=== PATIENT | female | born 1985 | race Caucasian/White ===

== ENCOUNTER 2025-05-18 13:02 | Outpatient (AMB) | payer OTHER, SELFPAY ==
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
[2025-05-18 13:09] VITALS: BP 108/54; PULSE 59; O2SAT 97; BMI 31.7
--- OUTSIDE RECORDS SUMMARY | 2025-05-18 14:08 | XMS_ITS | Patient Health Record ---
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 Role Phone Cecelia Funez Primary Care Provider Unavailabl e Allergies Allergen (clinical drug ingredient) Drug/Non Drug Allergy documented on EMR Reaction Allergy Type Onset Date Status Tree Nuts Unknown Allergy Active Reason For Referral No Information Medications Medication SIG (Take, Route, Frequency, Duration) Notes Start Date End Date Status Mirena (52 MG) 20 MCG/DAY as directed Intrauterine Active Problems Problem Type SNOMED Code ICD Code Onset Dates Problem Status W/U Status Risk Notes Problem Exercise induced bronchospasm (777837587) Exercise induced bronchospasm (J45.990) Active confirmed Problem Obstructive sleep apnea (63923711) Obstructive sleep apnea (G47.33) Active confirmed Problem Hypersomnia (83006295) Hypersomnolence (G47.10) Active confirmed Problem Body mass index 40+ - severely obese (541459354) BMI 50.0-59.9, adult (Z68.43) Active confirmed Problem Unrefreshed by sleep (019917214) Unrefreshed by sleep (G47.8) Active confirmed Plan Of Treatment No Information Insurance Providers Payer Name Payer Address Payer Phone Subscriber Number Group Number Insured Name Patient Relationship to Insured Coverage Start Date Coverage End Date Cigna [address] [place] [phone] [id number] Kyara Marino Self - patient is the insured Medical (General) History Medical History History ICD Code Binge eating disorder Depression Hay fever Exercise induced asthma Gestational hypertension Surgical History Surgery Date(Month/Year) C section tues in her ears Hospitalization History Reason Date(Month/Year) allergic reactions to peanuts
== END 2025-05-18 13:37 | disposition home or self-care (01) ==
PROVIDERS: PCP Student in an Organized Health Care Education/Training Program; Visit Provider Student in an Organized Health Care Education/Training Program
DX: E04.2 Nontoxic multinodular goiter (principal)
CPT/HCPCS: 99204

== ENCOUNTER 2025-05-24 10:48 | Outpatient (REF) | payer OTHER, SELFPAY ==
--- NOTE | 2025-05-24 11:34 | PM.PROC ---
Brief Operative Note Date of procedure: 05/24/25 Pre-op diagnosis: right superior 1.6 cm and right inferior 2.6 cm thyroid nodule FNA biopsy Post-op diagnosis: same Procedure: THYROID FINE NEEDLE ASPIRATION PROCEDURE NOTE ? PROCEDURE PERFORMED: Ultrasound-guided FNA of thyroid nodule ? OPERATORS: Dr. Jazmine Del Rio ? INDICATION: right superior 1.6 cm and right inferior 2.6 cm thyroid nodules ; FNA performed to assess for malignancy ? DESCRIPTION OF PROCEDURE: The indications for FNA (to assess for malignancy) were reviewed with the patient in detail. Potential complications (e.g., bleeding, infection, damage to local structures, absence of clear diagnosis after FNA) were reviewed. Alternatives to FNA including conservative observation or surgery were described. The patient understood and agreed to proceed. This was documented by the signing of the written informed consent form. A time-out was performed to confirm the patient's identity and the site of planned FNA. The nodule of interest was identified using ultrasound (14 MHz linear array probe). The site of FNA was then draped in the usual fashion and carefully cleaned and prepared using alcohol swabs. The skin at the previously-identified site of needle insertion was iced and sprayed with numbing spray. First for the right superior 1.6 cm thyroid nodule, Under ultrasound guidance, _4_ passes were performed using a 1.5-inch, 25-gauge needle, and sample was obtained via capillary action. The needle tip was clearly visualized to be within the nodule at the time of sampling for _4_ of _4_ passes. Then for the right inferior 2.6 cm thyroid nodule, Under ultrasound guidance, _4_ passes were performed using a 1.5-inch, 25-gauge needle, and sample was obtained via capillary action. The needle tip was clearly visualized to be within the nodule at the time of sampling for _4_ of _4_ passes. The patient tolerated the procedure well. There were no immediate complications. A small adhesive bandage was applied, and the patient was advised to take acetaminophen (rather than NSAIDs) for any discomfort and to report any signs of inflammation/infection or marked swelling. IMPRESSION: Technically successful ultrasound-guided fine needle aspiration of right superior 1.6 cm and right inferior 2.6 cm thyroid nodules. PLAN: The patient was advised that I will provide follow-up regarding the cytology result and any subsequent plans. Jazmine Del Rio MD Endocrinology Attending Condition: stable Disposition: same day
--- OUTSIDE RECORDS SUMMARY | 2025-05-24 12:47 | XMS_ITS | Patient Health Record ---
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 Name Role Phone Cecelia Funez Primary Care [...] Status Risk Notes Problem Exercise induced bronchospasm (992257676) Exercise induced bronchospasm (J45.990) Active confirmed Problem Obstructive sleep apnea (24802436) Obstructive sleep apnea (G47.33) Active confirmed Problem Hypersomnia (19352562) Hypersomnolence (G47.10) Active confirmed Problem Body mass index 40+ - severely obese (932588295) BMI 50.0-59.9, adult (Z68.43) Active confirmed Problem Unrefreshed by sleep (042845444) Unrefreshed by sleep (G47.8) Active confirmed Plan Of Treatment No Information Insurance Providers Payer Name Payer Address Payer Phone Subscriber Number Group Number Insured Name Patient Relationship to Insured Coverage Start Date Coverage End Date Cigna [address] [place] [phone] [id number] Kyara Marino Self - patient is the insured Medical (General) History Medical History History ICD Code Binge eating disorder Depression Hay fever Exercise induced asthma Gestational hypertension Surgical History Surgery Date(Month/Year) C section tues in her ears Hospitalization History Reason Date(Month/Year) allergic reactions to peanuts
== END 2025-05-24 10:49 | disposition home or self-care (01) ==
LOC: HO.US 10:48
PROVIDERS: PCP Student in an Organized Health Care Education/Training Program; Visit Provider Student in an Organized Health Care Education/Training Program
DX: E04.2 Nontoxic multinodular goiter (principal)
CPT/HCPCS: 10005; 88173; 88305

== ENCOUNTER → 2025-05-24 10:48 | Outpatient (BNV) | payer OTHER, SELFPAY | PROVIDERS: PCP Student in an Organized Health Care Education/Training Program; Visit Provider Student in an Organized Health Care Education/Training Program | DX: E04.2 Nontoxic multinodular goiter (principal) | CPT/HCPCS: 10005; 10006 ==

== ENCOUNTER 2025-06-05 08:05 | Outpatient (AMB) | payer OTHER, SELFPAY ==
--- OUTSIDE RECORDS SUMMARY | 2025-06-05 08:11 | XMS_ITS | Patient Health Record ---
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 Name Role Phone Cecelia Funez Primary Care [...] Status Risk Notes Problem Exercise induced bronchospasm (233622641) Exercise induced bronchospasm (J45.990) Active confirmed Problem Obstructive sleep apnea (20603372) Obstructive sleep apnea (G47.33) Active confirmed Problem Hypersomnia (44160041) Hypersomnolence (G47.10) Active confirmed Problem Body mass index 40+ - severely obese (885711306) BMI 50.0-59.9, adult (Z68.43) Active confirmed Problem Unrefreshed by sleep (451105473) Unrefreshed by sleep (G47.8) Active confirmed Plan Of Treatment No Information Insurance Providers Payer Name Payer Address Payer Phone Subscriber Number Group Number Insured Name Patient Relationship to Insured Coverage Start Date Coverage End Date Cigna [address] [place] [phone] [id number] Kyara Marino Self - patient is the insured Medical (General) History Medical History History ICD Code Binge eating disorder Depression Hay fever Exercise induced asthma Gestational hypertension Surgical History Surgery Date(Month/Year) C section tues in her ears Hospitalization History Reason Date(Month/Year) allergic reactions to peanuts
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
--- OUTSIDE RECORDS SUMMARY | 2025-06-05 08:11 | XMS_ITS | Data Portability ---
Author Organization [facility], Main Office Address [address] [facility] [address] [place] [id number] Care Team Providers Care Audit Practice Intern Name Role Phone FANY BENTLEY Primary Care Provider KERRY CATALAN Bariatric Surgeon LILLY INIGUEZ Head Of Acquisitions Assessment No assessment recorded. Plan of Treatment Reminders Order Date Submit Date Provider Last Modified By Organization Details Last Modified Time Details Appointments PE EST 2024 09:30A M FANY BENTLEY MD Not available Not available Not available Lab TSH + free T4, serum 2024 025 PUMA [facility] (Centralized Electronic Ordering - All Locations), Patient Can Go To The Location Of Their Choice, 04/27/2025 10:06:08 thyrop eroxid ase Ab, serum 2024 025 PUMA [facility] (Centralized Electronic Ordering - All Locations), Patient Can Go To The Location Of Their Choice, 04/27/2025 10:06:09 CMP, serum or plasma 2024 025 [email or web address] [facility] (Centralized Electronic Ordering - All Locations), Patient Can Go To The Location Of Their Choice, 01/05/2025 09:30:29 CBC w/ auto diff 2024 025 [email or web address] [facility] (Centralized Electronic Ordering - All Locations), Patient Can Go To The Location Of Their Choice, 01/05/2025 13:20:33 urinal ysis, dipsti ck 2024 025 [email or web address] In-Office Order, Internal Use Only DO Not Attach Compendium DO Not Attach Compendium, Do Not Delete/merge, [id number] 12/23/2024 15:23:03 urinal ysis comple te, reflex cultur e 2024 025 PUMA [facility] (Centralized Electronic Ordering - All Locations), Patient Can Go To The Location Of Their Choice, 12/24/2024 08:08:23 lipid panel, serum 2023 024 [email or web address] [facility], [address], [place], [address], 09/05/2024 09:17:16 BMP, serum or plasma 2023 024 PUMA [facility], [address], [place], [address], 06/07/2024 16:48:50 CBC w/ auto diff 2023 024 [facility], [address], [place], [address], 06/07/2024 16:48:51 TSH, ultra- sensit paul, serum 2023 024 [email or web address] [facility], [address], [place], [address], 09/05/2024 09:17:16 Hepati tis C IgG Ab, qual, serum 2023 024 PUMA [facility] (Centralized Electronic Ordering - All Locations), Patient Can Go To The Location Of Their Choice, 06/07/2024 16:48:50 HIV 1 + 2, meanin gful use set 2023 024 [email or web address] [facility] (Centralized Electronic Ordering - All Locations), Patient Can Go To The Location Of Their Choice, 06/07/2024 16:48:50 Referral physic al therap ist referr al 2023 024 [email or web address] Not available 03/06/2025 10:42:22 geneti c michelle sisi referr al - pt has a family histor y of breast cancer in her mother 2023 024 [email or web address] [facility] (Genetics), [address] [place], [address], 06/21/2024 14:33:00 Procedures None record ed. Surgeries None record ed. Imaging US, thyroi d - on ct cervic al spine multin odular goiter [address] [facility] (Ultrasound), [address], [place], [address], 05/16/2025 14:51:25 CT, abdome n + pelvis , w/ contra st - Lower quadra nt abdomi nal R>L and s/p SUSAN 1 year ago with right ovary still presen t. 2024 025 [email or web address] [facility], [address], [place], [address], 01/30/2025 08:45:00 MAMMO, screen ing, digita l, bilate ral 2023 024 [email or web address] [facility], [address], [address], [place], [address], 06/22/2024 08:59:20 Medication Orders tizani dine 2 mg tablet [address] [id number], [address], [place], [phone], 12/23/2024 13:32:43 EpiPen 2-Lucas 0.3 mg/0.3 mL inject ion, auto-i njecto r [address] [facility][id number], [address], [place], [phone], 06/07/2024 15:13:31 Patient TargetsNo targets recorded. Patient Instructions Encounter Date Encounter Id Patient Instructions Last Modified By Organization Details Last Modified Time 06/07/2024 [id number] Well Visit, Ages 18 to 65: Care Instructions Not available 06/07/2024 16:48:44 tension headache: care instructions Not available 06/07/2024 16:48:44 Preventing Depression From Coming Back: Care Instructions [email or web address] Not available 06/21/2024 13:41:32 depression treatment: care instructions nbarrows Not available 06/21/2024 13:41:32 learning about depression during nbarrows Not available 06/21/2024 13:41:32 HIV testing: care instructions Not available 06/07/2024 16:48:44 09/06/2024 [id number] tension headache: care instructions Not available 09/06/2024 11:52:54 12/23/2024 [id number] painful urination (dysuria): care instructions [email or web address] Not available 12/23/2024 15:23:03 04/26/2025 [id number] thyroid nodules: care instructions Not available 04/26/2025 09:36:00 Reason for Referral Genetic Counselor Referral f or Family history of breast cancer pt has a family history of breast cancer in her mother Referring Physician: Fany Bentley [facility], Encounter Date: 06/07/2024 Physical Therapist Referral for Neck pain Referring Physician: Fany Bentley [facility], Encounter Date: 09/06/2024 Results Created Date Observation Date Name Description Value Unit Range Abnormal Flag Note LastModifiedBy Organization Detail LastModifiedTime 12/23/1912/24/2024 CBC WITH DIFFE RENTI AL/PL ATELE T WBC 7.2 x10e3 /uL 3.4-10 .8 normal Not Available [facility] ([facility]) [address], [place], [address], 12/24/2024 08:08:20 12/23/19 25 12/24/2024 CBC WITH DIFFE RENTI AL/PL ATELE T RBC 4.38 x10e6 /uL 3.77-5 .28 normal Not Available [facility] ([facility]) [address] [place], [address], 12/24/2024 08:08:20 12/23/1912/24/2024 CBC WITH DIFFE RENTI AL/PL ATELE T hemoglobin 14.1 g/dL 11.1-1 5.9 normal Not Available [facility] ([facility]) [address] [place], [address], 12/24/2024 08:08:20 12/23/1912/24/2024 CBC WITH DIFFE RENTI AL/PL ATELE T hematocrit 42.6 % 34.0-4 6.6 normal Not Available [facility] ([facility]) [address], [place], [address], 12/24/2024 08:08:20 12/23/1912/24/2024 CBC WITH DIFFE RENTI AL/PL ATELE T MCV 97 fL 79-97 normal Not Available [facility] ([facility]) [address] [place], [address], 12/24/2024 08:08:20 12/23/1912/24/2024 CBC WITH DIFFE RENTI AL/PL ATELE T MCH 32.2 pg 26.6-3 3.0 normal Not Available [facility] ([facility]) [address] [place], [address], 12/24/2024 08:08:20 12/23/1912/24/2024 CBC WITH DIFFE RENTI AL/PL ATELE T MCHC 33.1 g/dL 31.5-3 5.7 normal Not Available [facility] ([facility]) [address] [place], [address], 12/24/2024 08:08:20 12/23/1912/24/2024 CBC WITH DIFFE RENTI AL/PL ATELE T RDW 11.1 % 11.7-1 5.4 below low normal Not Available [facility] ([facility]) [address], [place], [address], 12/24/2024 08:08:20 12/23/1912/24/2024 CBC WITH DIFFE RENTI AL/PL ATELE T platelets 264 x10e3 /uL 150-45 0 normal Not Available [facility] ([facility]) [address], [place], [address], 12/24/2024 08:08:20 12/23/1912/24/2024 CBC WITH DIFFE RENTI AL/PL ATELE T neutrophils 61 % not estab. normal Not Available [facility] ([facility]) [address], [place], [address], 12/24/2024 08:08:20 12/23/1912/24/2024 CBC WITH DIFFE RENTI AL/PL ATELE T lymphs 27 % not estab. normal Not Available [facility] ([facility]) [address], [place], [address], 12/24/2024 08:08:20 12/23/1912/24/2024 CBC WITH DIFFE RENTI AL/PL ATELE T monocytes 6 % not estab. normal Not Available [facility] ([facility]) [address], [place], [address], 12/24/2024 08:08:20 12/23/1912/24/2024 CBC WITH DIFFE RENTI AL/PL ATELE T eos 5 % not estab. normal Not Available [facility] ([facility]) [address] [place], [address], 12/24/2024 08:08:20 12/23/19 25 12/24/2024 CBC WITH DIFFE RENTI AL/PL ATELE T basos 1 % not estab. normal Not Available [facility] ([facility]) [address], [place], [address], 12/24/2024 08:08:20 12/23/1912/24/2024 CBC WITH DIFFE RENTI AL/PL ATELE T immature cells PIZZA BAKER Not Available [facility] ([facility]) [address], [place], [address], 12/24/2024 08:08:20 12/23/1912/24/2024 CBC WITH DIFFE RENTI AL/PL ATELE T neutrophils (absolute) 4.5 x10e3 /uL 1.4-7. 0 normal Not Available [facility] ([facility]) [address] [place], [address], 12/24/2024 08:08:20 12/23/19 25 12/24/2024 CBC WITH DIFFE RENTI AL/PL ATELE T lymphs (absolute) 1.9 x10e3 /uL 0.7-3. 1 normal Not Available [facility] ([facility]) [address] [place], [address], 12/24/2024 08:08:20 12/23/1912/24/2024 CBC WITH DIFFE RENTI AL/PL ATELE T monocytes(ab solute) 0.4 x10e3 /uL 0.1-0. 9 normal Not Available [facility] ([facility]) [address] [place], [address], 12/24/2024 08:08:20 12/23/1912/24/2024 CBC WITH DIFFE RENTI AL/PL ATELE T eos (absolute) 0.3 x10e3 /uL 0.0-0. 4 normal Not Available [facility] ([facility]) [address] [place], [address], 12/24/2024 08:08:20 12/23/19 25 12/24/2024 CBC WITH DIFFE RENTI AL/PL ATELE T baso (absolute) 0.0 x10e3 /uL 0.0-0. 2 normal Not Available [facility] ([facility]) [address] [place], [address], 12/24/2024 08:08:20 12/23/19 25 12/24/2024 CBC WITH DIFFE RENTI AL/PL ATELE T immature granulocytes 0 % not estab. Not Available [facility] ([facility]) [address], [place], [address], 12/24/2024 08:08:20 12/23/19 25 12/24/2024 CBC WITH DIFFE RENTI AL/PL ATELE T immature grans (abs) 0.0 x10e3 /uL 0.0-0. 1 Not Available [facility] ([facility]) [address], [place], [address], 12/24/2024 08:08:20 12/23/19 25 12/24/2024 CBC WITH DIFFE RENTI AL/PL ATELE T NRBC PIZZA BAKER Not Available [facility] ([facility]) [address], [place], [address], 12/24/2024 08:08:20 12/23/19 25 12/24/2024 CBC WITH DIFFE RENTI AL/PL ATELE T hematology comments: PIZZA BAKER Not Available [facility] ([facility]) [address] [place], [address], 12/24/2024 08:08:20 12/23/1912/24/2024 COMP. METAB OLIC PANEL (14) glucose 81 mg/dL 70-99 normal Not Available [facility] ([facility]) [address] [place], [address], 12/24/2024 08:08:21 12/23/19 25 12/24/2024 COMP. METAB OLIC PANEL (14) BUN 13 mg/dL 6-20 normal Not Available [facility] ([facility]) [address] [place], [address], 12/24/2024 08:08:21 12/23/19 25 12/24/2024 COMP. METAB OLIC PANEL (14) creatinine 0.74 mg/dL 0.57-1 .00 normal Not Available [facility] ([facility]) [address] [place], [address], 12/24/2024 08:08:21 12/23/19 25 12/24/2024 COMP. METAB OLIC PANEL (14) eGFR 107 mL/mi n/1.7 3 >59 normal Not Available [facility] ([facility]) [address] [place], [address], 12/24/2024 08:08:21 12/23/19 25 12/24/2024 COMP. METAB OLIC PANEL (14) BUN/creatini ne ratio 18 9-23 normal Not Available [facility] ([facility]) [address] [place], [address], 12/24/2024 08:08:21 12/23/19 25 12/24/2024 COMP. METAB OLIC PANEL (14) sodium 141 mmol/ L 134-14 4 normal Not Available [facility] ([facility]) [address] [place], [address], 12/24/2024 08:08:21 12/23/1912/24/2024 COMP. METAB OLIC PANEL (14) potassium 4.1 mmol/ L 3.5-5. 2 normal Not Available [facility] ([facility]) [address] [place], [address], 12/24/2024 08:08:21 12/23/19 25 12/24/2024 COMP. METAB OLIC PANEL (14) chloride 103 mmol/ L 96-106 normal Not Available [facility] ([facility]) [address] [place], [address], 12/24/2024 08:08:21 12/23/1912/24/2024 COMP. METAB OLIC PANEL (14) carbon dioxide, total 22 mmol/ L 20-29 normal Not Available [facility] ([facility]) [address] [place], [address], 12/24/2024 08:08:21 12/23/1912/24/2024 COMP. METAB OLIC PANEL (14) calcium 9.4 mg/dL 8.7-10 .2 normal Not Available [facility] ([facility]) [address] [place], [address], 12/24/2024 08:08:21 12/23/1912/24/2024 COMP. METAB OLIC PANEL (14) protein, total 6.6 g/dL 6.0-8. 5 normal Not Available [facility] ([facility]) [address] [place], [address], 12/24/2024 08:08:21 12/23/1912/24/2024 COMP. METAB OLIC PANEL (14) albumin 4.5 g/dL 3.9-4. 9 normal Not Available [facility] ([facility]) [address] [place], [address], 12/24/2024 08:08:21 12/23/1912/24/2024 COMP. METAB OLIC PANEL (14) globulin, total 2.1 g/dL 1.5-4. 5 Not Available [facility] ([facility]) [address] [place], [address], 12/24/2024 08:08:21 12/23/1912/24/2024 COMP. METAB OLIC PANEL (14) bilirubin, total 0.5 mg/dL 0.0-1. 2 normal Not Available [facility] ([facility]) [address] [place], [address], 12/24/2024 08:08:21 12/23/1912/24/2024 COMP. METAB OLIC PANEL (14) alkaline phosphatase 67 IU/L 44-121 normal Not Available [facility] ([facility]) [address], [place], [address], 12/24/2024 08:08:21 12/23/1912/24/2024 COMP. METAB OLIC PANEL (14) AST (SGOT) 21 IU/L 0-40 normal Not Available [facility] ([facility]) [address], [place], [address], 12/24/2024 08:08:21 12/23/1912/24/2024 COMP. METAB OLIC PANEL (14) ALT (SGPT) 18 IU/L 0-32 normal Not Available [facility] ([facility]) [address], [place], [address], 12/24/2024 08:08:21 12/23/1912/24/2024 UA/M W/RFL X CULTU RE, ROUTI NE specific gravity 1.009 1.005- 1.030 normal Not Available [facility] ([facility]) [address] [facility], [place], [address], 12/24/2024 08:08:23 12/23/1912/24/2024 UA/M W/RFL X CULTU RE ROUTI NE pH 5.5 5.0-7. 5 normal Not Available [facility] ([facility]) [address] [place], [address], 12/24/2024 08:08:23 12/23/1912/24/2024 UA/M W/RFL X CULTU RE ROUTI NE urine-color Yellow yellow Not Available [facility] ([facility]) [address], [place], [address], 12/24/2024 08:08:23 01/24/20 25 12/24/2024 UA/M W/RFL X CULTU RE, ROUTI NE appearance Clear clear Not Available [facility] ([facility]) [address] [place], [address], 12/24/2024 08:08:23 12/23/1912/24/2024 UA/M W/RFL X CULTU RE, ROUTI NE WBC esterase Negati ve negati ve Not Available [facility] ([facility]) [address] [facility], [place], [address], 12/24/2024 08:08:23 12/23/1912/24/2024 UA/M W/RFL X CULTU RE, ROUTI NE protein Negati ve negati ve/tra ce Not Available [facility] ([facility]) [address], [place], [address], 12/24/2024 08:08:23 12/23/1912/24/2024 UA/M W/RFL X CULTU RE, ROUTI NE glucose Negati ve negati ve Not Available [facility] ([facility]) [address] [place], [address], 12/24/2024 08:08:23 12/23/1912/24/2024 UA/M W/RFL X CULTU RE, ROUTI NE ketones Negati ve negati ve Not Available [facility] ([facility]) [address] [place], [address], 12/24/2024 08:08:23 12/23/1912/24/2024 UA/M W/RFL X CULTU RE, ROUTI NE occult blood Negati ve negati ve Not Available [facility] ([facility]) [address] [place], [address], 12/24/2024 08:08:23 12/23/19 25 12/24/2024 UA/M W/RFL X CULTU RE, ROUTI NE bilirubin Negati ve negati ve Not Available [facility] ([facility]) [address], [place], [address], 12/24/2024 08:08:23 12/23/1912/24/2024 UA/M W/RFL X CULTU RE, ROUTI NE urobilinogen ,semi-qn 0.2 mg/dL 0.2-1. 0 normal Not Available [facility] ([facility]) [address] [facility], [place], [address], 12/24/2024 08:08:23 12/23/1912/24/2024 UA/M W/RFL X CULTU RE, ROUTI NE nitrite, urine Negati ve negati ve Not Available [facility] ([facility]) [address] [facility], [place], [address], 12/24/2024 08:08:23 12/23/1912/24/2024 UA/M W/RFL X CULTU RE, ROUTI NE microscopic examination Commen t Micro scopi c follo ws if indic ated. Not Available [facility] ([facility]) [address], [place], [address], 12/24/2024 08:08:23 12/23/1912/24/2024 UA/M W/RFL X CULTU RE, ROUTI NE microscopic examination See below: Micro scopi c was indic ated and was perfo rmed. Not Available [facility] ([facility]) [address], [place], [address], 12/24/2024 08:08:23 12/23/1912/24/2024 UA/M W/RFL X CULTU RE, ROUTI NE WBC None seen /hpf 0 - 5 Not Available [facility] ([facility]) [address] [facility], [place], [address], 12/24/2024 08:08:23 12/23/1912/24/2024 UA/M W/RFL X CULTU RE, ROUTI NE RBC None seen /hpf 0 - 2 Not Available [facility] ([facility]) [address] [facility], [place], [address], 12/24/2024 08:08:23 12/23/19 25 12/24/2024 UA/M W/RFL X CULTU RE, ROUTI NE epithelial cells (non renal) None seen /hpf 0 - 10 Not Available [facility] ([facility]) [address] [facility], [place], [address], 12/24/2024 08:08:23 12/23/1912/24/2024 UA/M W/RFL X CULTU RE, ROUTI NE epithelial cells (renal) PIZZA BAKER Not Available [facility] ([facility]) [address] [facility], [place], [address], 12/24/2024 08:08:23 12/23/1912/24/2024 UA/M W/RFL X CULTU RE, ROUTI NE casts None seen /lpf none seen Not Available [facility] ([facility]) [address] [facility], [place], [address], 12/24/2024 08:08:23 12/23/1912/24/2024 UA/M W/RFL X CULTU RE, ROUTI NE cast type PIZZA BAKER Not Available [facility] ([facility]) [address] [facility], [place], [address], 12/24/2024 08:08:23 12/23/1912/24/2024 UA/M W/RFL X CULTU RE, ROUTI NE crystals PIZZA BAKER Not Available [facility] ([facility]) [address] [facility], [place], [address], 12/24/2024 08:08:23 12/23/1912/24/2024 UA/M W/RFL X CULTU RE, ROUTI NE crystal type PIZZA BAKER Not Available [facility] ([facility]) [address] [facility], [place], [address], 12/24/2024 08:08:23 12/23/1912/24/2024 UA/M W/RFL X CULTU RE, ROUTI NE mucus threads PIZZA BAKER Not Available [facility] ([facility]) [address] [facility], [place], [address], 12/24/2024 08:08:23 12/23/1912/24/2024 UA/M W/RFL X CULTU RE, ROUTI NE bacteria None seen none seen/f ew Not Available [facility] ([facility]) [address] [facility], [place], [address], 12/24/2024 08:08:23 12/23/1912/24/2024 UA/M W/RFL X CULTU RE, ROUTI NE yeast PIZZA BAKER Not Available [facility] ([facility]) [address] [facility], [place], [address], 12/24/2024 08:08:23 12/23/1912/24/2024 UA/M W/RFL X CULTU RE, ROUTI NE trichomonas PIZZA BAKER Not Available [facility] ([facility]) [address] [facility], [place], [address], 12/24/2024 08:08:23 12/23/1912/24/2024 UA/M W/RFL X CULTU RE, ROUTI NE comment PIZZA BAKER Not Available [facility] ([facility]) [address] [facility], [place], [address], 12/24/2024 08:08:23 12/23/1912/24/2024 UA/M W/RFL X CULTU RE, ROUTI NE urinalysis reflex Commen t This speci men will not refle x to a Urine Cultu re. Not Available [facility] ([facility]) [address] [facility], [place], [address], 12/24/2024 08:08:23 12/23/19 25 12/23/2024 urina lysis , dipst ick Leukocytes Negati ve Not Available In-Office Order Internal Use Only DO Not Attach Compendium DO Not Attach Compendium, Do Not Delete/merge, [facility] 12/23/2024 13:48:02 12/23/19 25 12/23/2024 urina lysis , dipst ick Nitritie negati ve Not Available In-Office Order Internal Use Only DO Not Attach Compendium DO Not Attach Compendium, Do Not Delete/merge, [facility] 12/23/2024 13:48:02 12/23/19 25 12/23/2024 urina lysis , dipst ick Urobilinogen .2 Not Available In-Of fice Order Internal Use Only DO Not Attach Compendium DO Not Attach Compendium, Do Not Delete/merge, [facility] 12/23/2024 13:48:02 12/23/19 25 12/23/2024 urina lysis , dipst ick Protein Negati ve Not Available In-Office Order Internal Use Only DO Not Attach Compendium DO Not Attach Compendium, Do Not Delete/merge, [facility] 12/23/2024 13:48:02 12/23/19 25 12/23/2024 urina lysis , dipst ick pH 6.0 Not Available In-Office Order Internal Use Only DO Not Attach Compendium DO Not Attach Compendium, Do Not Delete/merge, [facility] 12/23/2024 13:48:02 12/23/19 25 12/23/2024 urina lysis , dipst ick Blood Negati ve Not Available In-Office Order Internal Use Only DO Not Attach Compendium DO Not Attach Compendium, Do Not Delete/merge, [facility] 12/23/2024 13:48:02 12/23/19 25 12/23/2024 urina lysis , dipst ick Specific [place] 1.010 Not Available In-Off ice Order Internal Use Only DO Not Attach Compendium DO Not Attach Compendium, Do Not Delete/merge, [facility] 12/23/2024 13:48:02 12/23/19 25 12/23/2024 urina lysis , dipst ick Ketone Negati ve Not Available In-Office Order Internal Use Only DO Not Attach Compendium DO Not Attach Compendium, Do Not Delete/merge, [facility] 12/23/2024 13:48:02 12/23/1912/23/2024 urina lysis , dipst ick Bilirubin Negati ve Not Available In-Office Order Internal Use Only DO Not Attach Compendium DO Not Attach Compendium, Do Not Delete/merge, [facility] 12/23/2024 13:48:02 12/23/1912/23/2024 urina lysis , dipst ick Glucose Negati ve Not Available In-Office Order Internal Use Only DO Not Attach Compendium DO Not Attach Compendium, Do Not Delete/merge, [id number] 12/23/2024 13:48:02 12/23/1912/23/2024 urina lysis , dipst ick Appearance Clear Not Available In-Offi ce Order Internal Use Only DO Not Attach Compendium DO Not Attach Compendium, Do Not Delete/merge, [facility] 12/23/2024 13:48:02 12/23/1912/23/2024 urina lysis , dipst ick Color Yellow Not Available In-Office Order Internal Use Only DO Not Attach Compendium DO Not Attach Compendium, Do Not Delete/merge, [facility] 12/23/2024 13:48:02 04/26/2004/27/2025 TSH+F REE T4 TSH 0.720 uIU/m L 0.450- 4.500 normal Not Available [facility] ([facility]) [address] [place], [address], 04/27/2025 10:06:08 04/26/2004/27/2025 TSH+F REE T4 T4,free(dire ct) 1.14 NG/dL 0.82-1 .77 normal Not Available [facility] ([facility]) [address] [facility], [place], [address], 04/27/2025 10:06:08 04/26/20 25 04/27/2025 THYRO ID ANTIB ODIES thyroid peroxidase (tpo) Ab <9 IU/mL 0-34 Not Available [facility] ([facility]) [address] [facility], [place], [address], 04/27/2025 10:06:09 04/26/20 25 04/27/2025 THYRO ID ANTIB ODIES thyroglobuli n antibody <1.0 IU/mL 0.0-0. 9 Thyro globu luisa Antib kellee measu red by Anya daley Coult er Metho dolog y It shoul d be noted that the prese nce of thyro globu luisa antib odies may not be patho genic nor diagn ostic , espec ially at very low level s. The assay manuf actur er has found that four perce nt of indiv idual s witho ut evide nce of thyro id disea se or autoi mmuni ty will have posit paul TgAb level s up to 4 IU/mL . Not Available [facility] ([facility]) [address], [place], [address], 04/27/2025 10:06:09 04/03/20 25 03/17/2025 CT, cervi vj spine , w/o contr ast No observ ation record ed. [facility] [address] [place], [address], 04/03/2025 11:49:58 05/09/20 25 05/09/2025 US head neck soft tissu e See Note [facility] , a member of [facility] t Name: DAVID Sutherland Date of : 1984 Reason for Exam: thyroi d nodule Exam Date: 2024 [id number] EST Report Status : Final Orderi ng Provid er: NORMA GRECO PCP: NORMA GRECO HISTOR Y: Thyroi d nodule . TECHNI QUE: Graysc olivia assess ment of the thyroi d was perfor med with a high freque ncy linear transd ucer. COMPAR WENCESLAO: None FINDIN GS: The right lobe of the thyroi d measur es: 5.1 x 1.9 x 2.5 cm Previo us measur ement: No previo us availa ble Right lobe contou r: The right lobe contou r is smooth . Right lobe echoge nicity : Homoge neous Right lobe vascul arity: Normal The left lobe of the thyroi d measur es: 5.2 x 1.0 x 1.6 cm Previo us measur ement: No previo us availa ble Left lobe contou r: The left lobe contou r is smooth . Left lobe echoge nicity : Homoge neous Left lobe vascul arity: Normal Isthmu s measur es (AP): 0.4 cm Previo us measur ement: No previo us availa ble Isthmu s contou r: The isthmi c contou r is smooth . Isthmu s echoge nicity : Homoge neous Isthmu s vascul arity: Normal Masses : There are multip le bilate ral nodule s RIGHT LOBE: Upper pole Sharpl y circum scribe d homoge neous hypoec hoic oval mass with long axis parall el. Mild silversmith apprentice ior enhanc ement. No suspic ious calcif icatio n. No suspic ious color signal . No eviden ce of extrat hyroid al extens ion 6//2 5-0.8 x 0.4 x 0.9 cm TR 4 Mid right lobe There is a hetero geneou s solid nodule with isoech oic, hypere choic and hypoec hoic compon ents. Mixed silversmith apprentice ior featur es. No suspic ious calcif icatio ns. The margin s are circum scribe d. No eviden ce of extrat hyroid al extens ion. There is some internal controls analyst al color signal . 6/10/2 5-1.6 x 1.5 x 1.5 cm TR 4 Recomm end tissue diagno sis Lower pole There is a circum scribe d hetero geneou s solid oval nodule replac ing much of the lower pole. There are a few small cystic compon ents. There are some internal controls analyst al bright reflec tors. There is no eviden ce of extrat hyroid al extens ion. There is some color signal 6/10/2 5-2.6 x 1.6 x 1.8 cm TR 4 Tissue diagno sis recomm ended. LEFT LOBE: Upper pole Circum scribe d solid oval nodule with long axis parall el. No suspic ious color signal . Mild silversmith apprentice ior enhanc ement. No eviden ce of extrat hyroid al extens ion or suspic ious calcif icatio n 5-0.7 x 0.4 x 1.1 cm TR 4 There is a benign 0.5 cm colloi d cyst in the mid left lobe OTHER: Extrat hyroid al extens ion: None Region al lymph nodes: No enlarg ed lymph nodes demons trated IMPRES STU: There are multip le bilate ral thyroi d nodule s. There are 2 mostly solid nodule s in the right lobe. These each measur e greate r than 1.5 cm. Recomm end tissue diagno sis. This could be accomp lished using ultras ound locali zation and guidan ce. TI-RAD S Assess ment (updat ed February 2017) Compos ition: cystic or spongi form: 0 pt mixed cystic and solid: 1 pt solid or almost comple tely solid: 2 pts Echoge nicity : anecho ic: 0 pt hypere choic or isoech oic: 1 pt hypoec hoic: 2 pts very hypoec hoic: 3 pt Shape: wider than tall: 0 pt taller than wide: 3 pts Margin : smooth : 0 pt ill-de fined: 0 pt lobula earnestine/ir regula r: 2 pts extra- thyroi lukasz extens ion: 3 pts Echoge yulia foci none or large comet tail artifa ct: 0 pt macro- calcif icatio n: 1 pt periph eral/r im ca++: 2 pts puncta te echoge yulia foci: 3 pts TR1: 0 pts; benign ; no follow -up TR2: 2 pts; not suspic ious; no FNA TR3: 3 pts; mildly suspic ious; < or = 1.5 cm f/u; > or = 2.5 cm FNA TR4: 4-6 pts; modera tely suspic ious; < or = 1.0 cm follow -up; 1.5 cm FNA TR5: 7 or > pts; highly suspic ious; .5-.9 cm f/u; 1.0 cm or > FNA ------ -- FINAL REPORT ------ -- Dictat ed By: Coughl in, Joe F Dictat ed Date: 2024 14:28 ET Assign ed Physic elvi: Joe House Review ed and Electr onical ly Signed By: Joe House Signed Date: 2024 14:42 ET Workst ation ID: [id number] Transc ribed By: Self Edit Transc ribed Date: 2024 14:29 ET [facility] [address], [place], [address], 05/10/2025 11:09:15 Result Notes None recorded. Problems Name Problem SNOMED Code Status Onset Date Resolution Date Notes Provider Name and Address Organization Details Recorded Time Abnormal uterine bleeding 31071464430 100 Completed 202306/07/2024 FANY BENTLEY MD [address] [address], [address], [facility] 4 07:18:52 Dizzines s 520775471 Completed 202306/07/2024 orthosta tic FANY BENTLEY MD [address] [facility] [address], [address], [facility] 4 14:33:23 Carpal tunnel syndrome 28460377 Completed 202306/07/2024 FANY BENTLEY MD [address] [address], [address], [facility] 4 07:04:29 Tension- type headache 741756366 Active 2023 FANY BENTLEY MD [address] [facility] [address], [address], [facility] 4 07:07:09 Binge eating disorder 055174674 Completed 202306/07/2024 FANY BENTLEY MD [address] [facility] [address], [address], [facility] 4 07:07:23 Lateral epicondy litis of bilatera l humerus 05636291022 171533 Completed 202306/07/2024 FANY BENTLEY MD [address] [address], [place], [address], [facility] 4 07:07:43 Generali zed anxiety disorder 98791838 Active 2023 FANY BENTLEY MD [address], [address], [facility] 4 14:30:23 Major depressi ve disorder 132565429 Active 2023 FANY BENTLEY MD [address], [address], [facility] 4 16:46:44 Mild major depressi on, single episode 74095873 Active 2023 Hamida wallace, [facility] 4 13:39:42 Problem Notes None recorded. Procedures Surgical History Date Name Laterality Status Provider Name and Address Organization Details Recorded Time 024 total abdominal hysterectomy completed Aylin carnes MA [facility] 12/23/2024 14:51:42 023 laparoscopic sleeve gastrectomy completed FANY BENTLEY MD [address], [address], [facility] 06/07/2024 07:13:50 section completed FANY BENTLEY MD [address], [address], [facility] 06/07/2024 07:04:46 cystourethroscopy and dilation of urinary bladder completed FANY BENTLEY MD [address], [address], [facility] 06/07/2024 07:17:25 tympanostomy completed FANY BENTLEY MD [address] [place], [address], [facility] 06/07/2024 07:17:33 Imaging Results None recorded. Procedure Notes None recorded. Medical Equipment None Reported. Allergies Allergen ID Allergen Name Allergen Category Reaction Reaction Severity Criticality Documentation Date Start Date Code Code System Note Provider Name and Address Organization Details Recorded Time 33209 peanut allergeni c extract food,medi cation anaphylax is Not available high 06/07/2024 [id number] 8 Geetha BENTLEY MD [address] [facility] [address], [place], [address], [facility] 4 07:05:34 81215 tree nut food anaphylax is Not available high 06/07/2024 76605 UNK FANY BENTLEY MD [address] [facility] [address], [facility] [place], [address], [facility] 4 07:05:42 37244 Benadryl medicatio n hallucina tions Not available low 06/07/2024 [id number] 7 Geetha BENTLEY MD [address] [facility] [address], [place], [address], [facility] 4 14:23:03 Medications Name Sig Start Date Stop Date Status Note LastModified by Organization Details LastModified Time medroxyprog esterone 10 mg tablet TAKE 1 TABLET BY MOUTH ONCE A DAY 06/07 completed Not Available Not Available Not Available fluconazole 100 mg tablet TAKE 2 TABLETS BY MOUTH ONCE DAILY FOR THE FIRST DOSE THEN 1 TABLET ONCE DAILY FOR A TOTAL OF 7 DAYS 06/07 completed Not Available Not Available Not Available tizanidine 2 mg tablet Take 1 tablet every day by oral route as needed for 30 days, for neck pain. 12/23 completed Not Available Not Available Not Available ibuprofen 800 mg tablet TAKE 1 TABLET ORALLY EVERY 8 HOURS NEEDED FOR PAIN 06/07 completed Not Available Not Available Not Available cephalexin 500 mg capsule TAKE 1 CAPSULE BY MOUTH 4 TIMES A DAY FOR 7 DAYS 06/07 completed Not Available Not Available Not Available ursodiol 250 mg tablet TAKE 1 TABLET BY MOUTH TWICE DAILY, START AT 2 WEEK POST OP 06/07 completed Not Available Not Available Not Available docusate sodium 100 mg capsule TAKE 1 CAPSULE BY MOUTH TWICE DAILY 06/07 completed Not Available Not Available Not Available mupirocin 2 % topical ointment APPLY TOPICALLY TWICE A DAY 06/07 completed Not Available Not Available Not Available amoxicillin 875 mg-potassiu m clavulanate 125 mg tablet TAKE 1 TABLET BY MOUTH 2 TIMES A DAY. 06/07 completed Not Available Not Available Not Available oxycodone 5 mg tablet TAKE 1 TABLET ORALLY EVERY 4 HOURS NEEDED FOR PAIN,MODE RATE (4-6) 06/07 completed Not Available Not Available Not Available Calcium Chew 500 mg-100 unit-40 mcg tablet Take 1 tablet every day by oral route. active Not Available Not Available No t Available (21) 1.5 mg-30 mcg tablet TAKE 1 TABLET BY MOUTH EVERY DAY 06/07 completed Not Available Not Available Not Available Vitamin C 1000 po qod active Not Available Not Available No t Available Vitamin D3 1000 po qd active Not Available Not Available No t Available tranexamic acid 650 mg tablet TAKE 2 TABLETS (1,300 MG TOTAL) BY MOUTH 3 TIMES A DAY FOR 5 DAYS. 06/07 completed Not Available Not Available Not Available EpiPen 2-Lucas 0.3 mg/0.3 mL injection, auto-inject or Take 1 auto by injection route as needed for 1 day. 2023 active Not Available Not Available Not Avai lable Flintstones Complete 2 po qd active Not Available Not Available Not Available Blisovi Fe 12/19 (28) 1 mg-20 mcg (21)/75 mg (7) tablet TAKE 1 TABLET BY MOUTH EVERY DAY 06/07 completed Not Available Not Available Not Available Tylenol 325 mg capsule Take 2 capsules as needed by oral route. active Not Available Not Available No t Available Vitals Date Recorded Body height Body mass index (BMI) Body weight Heart rate Oxygen saturation Oxygen saturation in Arterial blood by Pulse oximetry Body temperature Systolic And Diastolic Provider Name and Address Organization Details Last Updated DateTime 5 170.18 cm 31.2 kg/m2 85168.6 8 g 58 /min 100 % 100 % 98.7 [degF] 139/78 mm[Hg] Glenda Rose IshmariliaRADHA [facility] 5 13:31:47 Date Recorded Body height Body mass index (BMI) Body weight Oxygen saturation Oxygen saturation in Arterial blood by Pulse oximetry Heart rate Body temperature Systolic And Diastolic Provider Name and Address Organization Details Last Updated DateTime 5 170.18 cm 31.8 kg/m2 77546.6 5 g 99 % 99 % 89 /min 98.1 [degF] 116/77 mm[Hg] Clarice Malhotra MA [facility] 5 09:28:31 Date Recorded Body height Body mass index (BMI) Body weight Oxygen saturation Oxygen saturation in Arterial blood by Pulse oximetry Heart rate Body temperature Systolic And Diastolic Provider Name and Address Organization Details Last Updated DateTime 4 170.18 cm 31.1 kg/m2 68921.3 9 g 99 % 99 % 80 /min 98.6 [degF] 110/71 mm[Hg] Clarice Malhotra MA [facility] 4 14:11:34 Date Recorded Body height Body mass index (BMI) Body weight Oxygen saturation Oxygen saturation in Arterial blood by Pulse oximetry Heart rate Body temperature Systolic And Diastolic Provider Name and Address Organization Details Last Updated DateTime 4 170.18 cm 30.9 kg/m2 26270.7 g 99 % 99 % 79 /min 98.1 [degF] 127/79 mm[Hg] Clarice Malhotra MA [facility] 4 11:41:59 Social History Question Answer Notes LastModified by Organizat ion Details LastModified Time Tobacco Smoking Status Never Smoker RADHA Glasgow [facility] 06/07/2024 14:16:18 Is Blood Transfusion Acceptable In An Emergency? Yes [email or web address] Information not available 06/07/2024 What Type Of Diet Are You Following? REGULAR [email or web address] Information not available 06/07/2024 Which Illicit Or Recreational Drugs Have You Used? Marijuana [email or web address] Information not available 06/07/2024 Do You Take Precautions To Prevent Distracted Driving? Yes [email or web address] Information not available 06/07/2024 How Often Do You Need To Have Someone Help You When You Read Instructions, Pamphlets, Or Other Written Material From Your Doctor Or Pharmacy? Sometimes [email or web address] Information not available 06/07/2024 Have You Served In The ? No [email or web address] Information not available 06/07/2024 *[facility] ONLY* Are You Presently Prescribed Opioid Medication By PCP Or Specialist? If YES -Provider Assess The Benefit For Other, Non-opioid Pain Therapies Instead, Even If The Patient Does Not Have OUD But Is Possibly At Risk. No [email or web address] Information not available 06/07/2024 How Many Children Do You Have? 1 [email or web address] Information not available 06/07/2024 Are You Passively Exposed To Smoke? No [email or web address] Information no t available 06/07/2024 Sex: Unknown Functional Status Question Answer Note LastModified by Organizat ion Details LastModified Time Do you use any illicit or recreational drugs? Yes [email or web address] Information not available 06/07/2024 Do you or have you ever used any other forms of tobacco or nicotine? No [email or web address] Information not available 06/07/2024 What is your level of alcohol consumption? None [email or web address] Information not available 06/07/2024 Are you currently employed? Yes [email or web address] Information not available 06/07/2024 Are you able to walk? 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 Moderate [email or web address] Information not available 06/07/2024 Mental Status None recorded. Family History Relationship Description Onset Age of this Age Resolved Age Notes LastModified by Organization Details LastModified Time Mother Malignant tumor of breast 56 Not available 06/07 07:06:04 Father Hyperlipidem ia Not available 06/07 07:06:15 Father Lipoma of spinal cord Not available 07/2024 07:06:36 Father Malignant melanoma [email or web address] Not available 06/07 14:15:44 Sister Esteban-Danlo s syndrome Not available 07/2024 07:06:27 Medical History No medical history recorded. Gynecological History Statement/Question Response Date of Last Pap Smear Obstetrics History GPAL:G 0 P 0 0 0 0 Immunizations Vaccine Type Date Status Note Provider Nam e and Address Organization Details Recorded Time DTaP, unspecified formulation 8 completed Radha Armendariz null, [facility] 05/25/2024 09:38:17 DTP 7 completed Radha Armendariz null, [facility] 05/25/2024 09:42:34 DTP 7 completed Radha Armendariz null, [facility] 05/25/2024 09:43:08 DTP 8 completed Radha Armendariz null, [facility] 05/25/2024 09:43:15 DTP 2 completed Radha Armendariz null, [facility] 05/25/2024 09:43:20 influenza, unspecified formulation 4 completed Radha Armendariz null, [facility] 05/25/2024 09:43:30 meningococcal ACWY, unspecified formulation 5 completed Radha Armendariz null, [facility] 05/25/2024 09:43:42 polio, unspecified formulation 7 completed Radha Armendariz null, [facility] 05/25/2024 09:43:51 polio, unspecified formulation 7 completed Radha Armendariz null, [facility] 05/25/2024 09:44:00 polio, unspecified formulation 8 completed Radha Armendariz null, [facility] 05/25/2024 09:44:11 polio, unspecified formulation 8 completed Radha Armendariz null, [facility] 05/25/2024 09:44:18 polio, unspecified formulation 2 completed Radha Armendariz null, [facility] 05/25/2024 09:44:31 Td(adult) unspecified formulation 8 completed Radhalakshmi Armendariz null, [facility] 05/25/2024 09:44:39 Td(adult) unspecified formulation 0 completed Radha Armendariz null, [facility] 05/25/2024 09:44:52 Tdap 9 completed Clarice MalhotraRADHA null, [facility] 09/06/2024 11:37:22 Tdap 0 completed Clarice Malhotra RADHA null, [facility] 09/06/2024 11:37:22 Hib, unspecified formulation 9 completed Radha Armendariz null, [facility] 05/25/2024 09:45:48 Hep B, unspecified formulation 9 completed Radha Armendariz null, [facility] 05/25/2024 09:45:57 Hep B, unspecified formulation 9 completed Radha Armendariz null, [facility] 05/25/2024 09:46:05 Hep B, unspecified formulation 9 completed Radha Krishnanett null, [facility] 05/25/2024 09:46:13 varicella 2 completed Radha Krishnanett null, [facility] 05/25/2024 09:46:44 COVID-19, mRNA, LNP-S, PF, 100 mcg/0.5mL dose or 50 mcg/0.25mL dose 2 completed Clarice Malhotra RADHA null, [facility] 09/06/2024 11:37:22 COVID-19, mRNA, LNP-S, PF, 100 mcg/0.5mL dose or 50 mcg/0.25mL dose 1 completed Clarice Malhotra RADHA null, [facility] 09/06/2024 11:37:22 COVID-19, mRNA, LNP-S, PF, 100 mcg/0.5mL dose or 50 mcg/0.25mL dose 1 completed RADHA Glasgow [facility] 09/06/2024 11:37:22 HPV, quadrivalent 8 completed RADHA Glasgow [facility] 09/06/2024 11:37:23 HPV, quadrivalent 8 completed RADHA Glasgow, [facility] 09/06/2024 11:37:23 HPV, quadrivalent 8 completed RADHA Glasgow, [facility] 09/06/2024 11:37:23 Past Encounters Encounter ID Performer Location Encounter Start Date Encounter Closed Date Diagnosis/Indication Diagnosis SNOMED-CT Code Diagnosis ICD10 Code Diagnosis Note [id number] FANY BENTLEY MD Main Office [address] [facility] RADHA [place]ERA [address] 06/07/2024 14:00:09 06/07/2024 14:54:08 Adult health examination 030831262 Z00.00 Health Maintenanc e FemaleA) Patient was counseled on healthy diet, exercise and nutrition due to BMI of 31.1 B) ScreeningL ast Mammogram: start at age 50 stop at 76Date: Result: BIRADS ???Next: pt has family of breast cancer, requesting early mammogram Last Pap smear: s/p hysterecto my Last Colonoscop y: start at age 45-75Date: Result: Next: not yet of age Last DEXA scan:Date: due at 67Result: ??? C) Vaccines:I nfluenza: declinedTd AP: 11/22/2020 Zoster: due at 66DHP45: due at 04JWDW03: due at 20DNP81:PC V15:COVID: 03/11/2021, 04/08/2021, 12/13/2021H PV negative D) Routine blood work orderedE) Updated patient's history RTC in one year for annual exam or sooner if any acute complaints Fatigue 41927004 R53.83 Z00.00 Hyperlipidemia 04708403 E78.5 Z00.00 FASTING Environmental allergy 42 1983177 T78.49XA - pt is allergic to peanuts- pt does not currently have epipen, refilled Generalize d anxiety disorder 70097645 F41.1 - HAMLET-7 score of 15- pt follows with a therapy once a week, emdr- currently declines medication s- counsellin diomedes provided Tension-type headache 39 7858557 G44.209 - in one month will have 12-15 headaches- back of neck and back of eyes- never had any prescribed medication s- cannot take NSAIDs currently due to recent surgery- has blue-light glasses- pt does not currently want medication however open to message, accupantur e, TENS unit, botox- suggested magnesium- RTC in 3 months Hepatitis C screening 41 9204388 Z11.59 Family his tory of breast cancer 250640389 Z80.3 HIV screening 643487773 Z11.4 Mild major depression, single episode 50830672 F32.0 - PHQ-9 score of 7- pt follows with a therapy once a week, emdr- currently declines medication s- denies SI/HI- counsellin diomedes provided [id number] FANY BENTLEY MD Main Office [address] [place] [address] 09/06/2024 11:33:54 09/06/2024 11:58:03 Tension-type headache 517360201 G44.209 - in one month will have 12-15 headaches- back of neck and back of eyes- never had any prescribed medication s- cannot take NSAIDs currently due to recent surgery- has blue-light glasses- advised for message, accupantur e, TENS unit, botox- will try a short course of tizanidine 2mg as needed- pt also referred to physical therapy Neck pain 02226931 M54.2 [id number] Dagoberto Abbott MD Main Office [address] [place] [address] 12/23/2024 13:16:23 12/23/2024 14:28:51 Dysuria 92254770 R30.0 Lower abdominal pain 545 [address]10[address] scan to r/o mass or obstructio n from previous surgery. Also r/o ovarian cyst.She did not want anything stronger than tylenol for her pain. [id number] FANY BENTLEY MD Main Office [address] [place]HA [place] [address] 04/26/2025 09:18:04 04/26/2025 09:38:43 Thyroid nodule 020873326 E04.1 - incidental finding noted on CT of cervical spine- ordered thyroid antibodies and thyroid hormones- ordered thyroid ultrasound - depending on results will guide patient with treatment course Health Concerns Section Related Observation LastModified by Organization Detai ls LastModified Time None Recorded Concern Status LastModified by Organization Details LastModified Time None Recorded Advance Directives Directive None Recorded Payers Insurance Date Sequence Insurance Name Policy Number Policy Stearns Covered Member ID Stearns Member ID Guarantor Name 06/21/[address] [facility] [id number] David L Graves [id number] David L Laci 05/08/2025 1 [facility] [id number] David L Laci [id number] David L Laci Notes Date Note Type Note Provider Name and Address Organization Details Recorded Time 06/07/2024 text/html HeadacheReported bypatient.Location:daniel ateral; including neck; occipital Quality:not the worst headache ever; similar to previous headaches Severity:mild Duration:intermittent Onset/Timing:occur daily Context:not related to trauma Aggravating factors:nothing makes it worse Alleviating factors:nothing gives relief Associated Symptoms:no vomiting; no sensitivity to light; tearing/watery eyes; no confusion; no slurred speech; no preceeding aura; no double vision; normal feeling/sensation; no motor paralysis; no dizziness; no sleep disturbances; no nosebleeds; no hoarseness; no sore throat; no hearing loss David Marino is a 39 year old F who presented to the clinic to establish care. Pt was last seen by a PCP was last year. Pt recently moved to the area. Complaints: headaches Is not using ASA.OTC/Herbal supplements use: vitamin C, vitamin D3, calcium, thiamine Gynecologic HistoryNo spottingSexually active: yesContraception: menopause+ ovarian cysts+ abnormal paps, underwent colpoDenies stds, fibroids Obstetric HistoryGravida: 1Para: 1AB: 0Livin (C/S)Complications: gestational hypertension Drug use: neverEtoh use: not currentlytobacco use: neverspf/derm: Dental: every 6 monthsEye: once a year, wears contacts and glassesDiet: regular, follows with bariatric nutritionistActivity: yoga, walking/hiking 1-2 times a week, does some weights Hamida wallace [facility] 06/21/2024 13:41:37 09/06/2024 text/html HeadacheReported bypatient.Location:daniel a[facility]; including neck; occipital Quality:not the worst headache ever; similar to previous headaches Severity:mild Duration:intermittent Onset/Timing:occur daily Context:not related to trauma Aggravating factors:nothing makes it worse Alleviating factors:nothing gives relief Associated Symptoms:no vomiting; no sensitivity to light; tearing/watery eyes; no confusion; no slurred speech; no preceeding aura; no double vision; normal feeling/sensation; no motor paralysis; no dizziness; no sleep disturbances; no nosebleeds; no hoarseness; no sore throat; no hearing lossNotes:Associated with muscle tension and having shoulder and neck pain. David Marino is a 39 year old F who presented to the clinic for follow-up on her headaches. Pt has tried magnesium however patient was able to tolerate medication. Pt was having too much nausea with it. Has tried massages with mild relief. FANY BENTLEY MD [address] [address], [place], [phone], [facility] 09/06/2024 12:15:52 12/23/2024 text/html She had a SUSAN do ne in November 2023 (1 year ago) and was last seen by CONSUMER AFFAIRS DIRECTOR January 2024. She has been slow to heal and continues to have lower abdominal pain R>L especially over the last few weeks. There has been no change in her diet or meds. She has nausea but no vomiting and no f/c. She has a decreased appetite.. BM's are normal but sometimes painful and intercourse is painful. She denies any urinary symptoms. She called her CONSUMER AFFAIRS DIRECTOR office but did not yet get a call back. Hamida wallace [facility] 01/05/2025 09:30:34 04/26/2025 text/html David Aguero is a 39 year old F who presents to the clinic to discuss on incidental finding that was noted on CT cervical spine. Pt was seen in the ED on 03/17/[address] cervical spine was done which showed multinoduler goiter. Pt not currently having SOB or trouble swallowing. Has noticed that her voice is a little lower than usual. Not taking biotin. FANY BENTLEY MD [address] [address], [place], [phone], [facility] 04/26/2025 09:38:52 OBGyn Episode No OBEpisode recorded.
--- OUTSIDE RECORDS SUMMARY | 2025-06-05 08:11 | XMS_ITS | Clinical Summary ---
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 Name Role Phone Fany Bentley MD Primary Care Provider [phone] Allergies Active Allergy Reactions Criticality Noted Date Comments Diphenhydramine Hallucinations Low 01/04/2025 Encounters Date Type Department Care Team Description 05/09/2025 10:45 AM EDT - 05/09/2025 11:59 PM EDT Hospital Encounter [facility] Ultrasound [address] [place] [address] Nontoxic single thyroid nodule Discharge Disposition: Home or Self Care from Last 3 Months Medical History Medical History Date Comments Ovarian cyst Social History Tobacco Use Types Packs/Day Years Used Date Smoking Tobacco: Never Smokeless Tobacco: Never Tobacco Cessation:Counseling Given: Not Answered Comments No Sex and Gender Information Value Date Recorded Sex Assigned at Female 01/04/2025 9:33 PM EST Legal Sex Female 8:29 PM EST Gender Identity Female 01/04/2025 9:33 PM EST Sexual Orientation Straight 01/04/2025 9: 33 PM EST Obstetrics History Last Filed Vital Signs Vital Sign Reading Time Taken Comments Blood Pressure 127/73 01/04/2025 8:32 PM EST Pulse 65 01/04/2025 8:32 PM EST Temperature 36.7 C (98.1 F) 01/04/2025 8:32 PM EST Respiratory Rate 18 01/04/2025 8:32 PM EST Oxygen Saturation 98% 01/04/2025 8:32 PM EST Inhaled Oxygen Concentration - - Weight 90.7 kg (200 lb) 01/04/2025 5:28 PM EST Height 170.2 cm (5' 7 ) 01/04/2025 5:28 PM EST Body Mass Index 31.32 01/04/2025 5:28 PM EST Plan of Treatment Health Maintenance Due Date Last Done Comments Cervical Cancer Screening: Pap Smear 2008 Cholesterol Screening (Lipid Panel) 12/25/2023 Depression Screening 12/25/2023 HIV Screening 12/25/2023 Hepatitis C Screening 12/25/2023 Social Influencers of Health Screening 12/25/2023 COVID-19 Vaccine ( season) 2024 12/13/2021, 04/08/2021, 03/11/2021 Influenza Vaccine (#1) 2025 08/30/2014 DTaP,Tdap,and Td Vaccines (10 - Td or Tdap) 11/22/2030 11/22/2020, 12/29/2019, 03/09/2009, Additional history exists HIB Vaccines Completed 12/05/1988 Varicella Vaccines Aged Out 11/30/1991 No longer eligible based on patient's age to complete this topic IPV Vaccines Completed 03/21/1992, 11/1987, 02/22/1988, Additional history exists Hepatitis B Vaccines Completed 07/25/1999, 01/28/1999, 12/27/1998 Meningococcal ACWY Vaccine Completed 07/23/2005 HPV Vaccines Completed 09/11/2008, 04/30, 03/10/2008 Hepatitis A Vaccines Aged Out No long er eligible based on patient's age to complete this topic MMR Vaccines Aged Out No longer eligi ble based on patient's age to complete this topic Meningococcal B Vaccine Aged Out No l onger eligible based on patient's age to complete this topic Pneumococcal Vaccine: Pediatrics (0 to 5 Years) and At-Risk Patients (6 to 64 Years) Aged Out No longer eligible based on patient's age to complete this topic RSV Immunization Patients Under 20 months Aged Out No longer eligible based on patient's age to complete this topic Procedures Procedure Name Priority Date/Time Associated Diagnosis Comments US HEAD NECK SOFT TISSUE Routine 05/09/2025 11:20 AM EDT Nontoxic single thyroid nodule from Last 3 Months Results * US Head Neck Soft Tissue (05/09/2025 11:20 AM EDT) Anatomical Region Laterality Modality Head and Neck Ultrasound 05/09/2025 2:28 PM EDT Impressions 05/09/2025 2:42 PM EDT There are multiple bilateral thyroid nodules. There are 2 mostly solid nodules in the right lobe. These each measure greater than 1.5 cm. Recommend tissue diagnosis. This could be accomplished using ultrasound localization and guidance. TI-RADS Assessment (updated February 2017) Composition: cystic or spongiform: 0 pt mixed cystic and solid: 1 pt solid or almost completely solid: 2 pts Echogenicity: anechoic: 0 pt hyperechoic or isoechoic: 1 pt hypoechoic: 2 pts very hypoechoic: 3 pt Shape: wider than tall: 0 pt taller than wide: 3 pts Margin: smooth: 0 pt ill-defined: 0 pt lobulated/irregular: 2 pts extra-thyroidal extension: 3 pts Echogenic foci none or large comet tail artifact: 0 pt macro-calcification: 1 pt peripheral/rim ca++: 2 pts punctate echogenic foci: 3 pts TR1: 0 pts; benign; no follow-up TR2: 2 pts; not suspicious; no FNA TR3: 3 pts; mildly suspicious; < or = 1.5 cm f/u; > or = 2.5 cm FNA TR4: 4-6 pts; moderately suspicious; < or = 1.0 cm follow-up; 1.5 cm FNA TR5: 7 or > pts; highly suspicious; .5-.9 cm f/u; 1.0 cm or > FNA -------- FINAL REPORT -------- Dictated By: Joe Mccarty Dictated Date: 05/09/2025 14:28 ET Assigned Physician: Joe Mccarty Reviewed and Electronically Signed By: Joe Mccarty Signed Date: 05/09/2025 14:42 ET Workstation ID: [id number] Transcribed By: Self Edit Transcribed Date: 05/09/2025 14:29 ET Narrative 05/09/2025 2:42 PM EDT HISTORY: Thyroid nodule. TECHNIQUE: Grayscale assessment of the thyroid was performed with a high frequency linear transducer. COMPARISON: None FINDINGS: The right lobe of the thyroid measures: 5.1 x 1.9 x 2.5 cm Previous measurement: No previous available Right lobe contour: The right lobe contour is smooth. Right lobe echogenicity: Homogeneous Right lobe vascularity: Normal The left lobe of the thyroid measures: 5.2 x 1.0 x 1.6 cm Previous measurement: No previous available Left lobe contour: The left lobe contour is smooth. Left lobe echogenicity: Homogeneous Left lobe vascularity: Normal Isthmus measures (AP): 0.4 cm Previous measurement: No previous available Isthmus contour: The isthmic contour is smooth. Isthmus echogenicity: Homogeneous Isthmus vascularity: Normal Masses: There are multiple bilateral nodules RIGHT LOBE: Upper pole Sharply circumscribed homogeneous hypoechoic oval mass with long axis parallel. Mild posterior enhancement. No suspicious calcification. No suspicious color signal. No evidence of extrathyroidal extension 05/09/25-0.8 x 0.4 x 0.9 cm TR 4 Mid right lobe There is a heterogeneous solid nodule with isoechoic, hyperechoic and hypoechoic components. Mixed posterior features. No suspicious calcifications. The margins are circumscribed. No evidence of extrathyroidal extension. There is some internal color signal. 6-1.6 x 1.5 x 1.5 cm TR 4 Recommend tissue diagnosis Lower pole There is a circumscribed heterogeneous solid oval nodule replacing much of the lower pole. There are a few small cystic components. There are some internal bright reflectors. There is no evidence of extrathyroidal extension. There is some color signal 05/09/25-2.6 x 1.6 x 1.8 cm TR 4 Tissue diagnosis recommended. LEFT LOBE: Upper pole Circumscribed solid oval nodule with long axis parallel. No suspicious color signal. Mild posterior enhancement. No evidence of extrathyroidal extension or suspicious calcification 05/09/25-0.7 x 0.4 x 1.1 cm TR 4 There is a benign 0.5 cm colloid cyst in the mid left lobe OTHER: Extrathyroidal extension: None Regional lymph nodes: No enlarged lymph nodes demonstrated Procedure Note Joe Mccarty MD - 05/09/2025 HISTORY: Thyroid nodule. TECHNIQUE: Grayscale assessment of the thyroid was performed with a highfrequency linear transducer. COMPARISON: None FINDINGS: The right lobe of the thyroid measures: 5.1 x 1.9 x 2.5 cm Previous measurement: No previous available Right lobe contour: The right lobe contour is smooth. Right lobe echogenicity: Homogeneous Right lobe vascularity: Normal The left lobe of the thyroid measures: 5.2 x 1.0 x 1.6 cm Previous measurement: No previous available Left lobe contour: The left lobe contour is smooth. Left lobe echogenicity: Homogeneous Left lobe vascularity: Normal Isthmus measures (AP): 0.4 cm Previous measurement: No previous available Isthmus contour: The isthmic contour is smooth. Isthmus echogenicity: Homogeneous Isthmus vascularity: Normal Masses: There are multiple bilateral nodules RIGHT LOBE: Upper pole Sharply circumscribed homogeneous hypoechoic oval mass with long axisparallel. Mild posterior enhancement. No suspicious calcification. Nosuspicious color signal. No evidence of extrathyroidal extension 6-0.8 x 0.4 x 0.9 cm TR 4 Mid right lobe There is a heterogeneous solid nodule with isoechoic, hyperechoic andhypoechoic components. Mixed posterior features. No suspiciouscalcifications. The margins are circumscribed. No evidence ofextrathyroidal extension. There is some internal color signal. 6/09/23-1.6 x 1.5 x 1.5 cm TR 4 Recommend tissue diagnosis Lower pole There is a circumscribed heterogeneous solid oval nodule replacing much ofthe lower pole. There are a few small cystic components. There are someinternal bright reflectors. There is no evidence of extrathyroidalextension. There is some color signal /09/23-2.6 x 1.6 x 1.8 cm TR 4 Tissue diagnosis recommended. LEFT LOBE: Upper pole Circumscribed solid oval nodule with long axis parallel. No suspiciouscolor signal. Mild posterior enhancement. No evidence of extrathyroidalextension or suspicious calcification 6-0.7 x 0.4 x 1.1 cm TR 4 There is a benign 0.5 cm colloid cyst in the mid left lobe OTHER: Extrathyroidal extension: None Regional lymph nodes: No enlarged lymph nodes demonstrated IMPRESSION: There are multiple bilateral thyroid nodules. There are 2 mostly solid nodules in the right lobe. These each measuregreater than 1.5 cm. Recommend tissue diagnosis. This could be accomplished using ultrasoundlocalization and guidance. TI-RADS Assessment (updated February 2017) Composition: cystic or spongiform: 0 pt mixed cystic and solid: 1 pt solid or almost completely solid: 2 pts Echogenicity: anechoic: 0 pt hyperechoic or isoechoic: 1 pt hypoechoic: 2 pts very hypoechoic: 3 pt Shape: wider than tall: 0 pt taller than wide: 3 pts Margin: smooth: 0 pt ill-defined: 0 pt lobulated/irregular: 2 pts extra-thyroidal extension: 3 pts Echogenic foci none or large comet tail artifact: 0 pt macro-calcification: 1 pt peripheral/rim ca++: 2 pts punctate echogenic foci: 3 pts TR1: 0 pts; benign; no follow-up TR2: 2 pts; not suspicious; no FNA TR3: 3 pts; mildly suspicious; < or = 1.5 cm f/u; > or = 2.5 cm FNA TR4: 4-6 pts; moderately suspicious; < or = 1.0 cm follow-up; 1.5 cm FNA TR5: 7 or > pts; highly suspicious; .5-.9 cm f/u; 1.0 cm or > FNA -------- FINAL REPORT -------- Dictated By: Joe Mccarty Dictated Date: 05/09/2025 14:28 ET Assigned Physician: Joe Mccarty Reviewed and Electronically Signed By: Joe Mccarty Signed Date: 05/09/2025 14:42 ET Workstation ID: [id number] Transcribed By: Self Edit Transcribed Date: 05/09/2025 14:29 ET us Fany Bentley MD [facility] US PROCEDURES Final Res ult from Last [address] [place] [address] Care Teams Shingle Cutter Relationship Specialty Start Date End Date Fany Bentley MD [address] [address] PCP - General Internal Medicine 05/03/25
[2025-06-05 08:14] VITALS: BP 114/64; PULSE 59; O2SAT 100; BMI 31.1
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
== END 2025-06-05 08:24 | disposition home or self-care (01) ==
LOC: HO.ENCR 08:06
PROVIDERS: PCP Student in an Organized Health Care Education/Training Program; Visit Provider Student in an Organized Health Care Education/Training Program
DX: E04.2 Nontoxic multinodular goiter (principal)
CPT/HCPCS: 99213